=== PATIENT | female | born 1985 | race Two or more races ===

== ENCOUNTER 2016-12-29 07:47 | Inpatient (IN) | payer MEDICARE, MEDICAID ==
[~2016-12-29] VITALS: Ht 167.6 cm; Wt 98.9 kg
[~2016-12-29 07:47] MED LIST: IBUP200T64 PO; LORA-446 PO; TOPI200T25 PO
[2016-12-29] MEDS ORDERED: SODIUM CHLORIDE FLUSH 10ML SYR IVF ONE (08:00)
[2016-12-29] MEDS ORDERED: LORazepam 2 MG/ML, 1ML IVPush ONE (08:00)
[2016-12-29] MEDS ORDERED: LORazepam 2 MG/ML, 1ML ONE (08:09)
[2016-12-29 08:12] LABS: HEMATOCRIT 43.8 % (34.6-47.8); HEMOGLOBIN 14.3 g/dL (11.7-16.4); WHITE BLOOD COUNT 8.1 x10^3/uL (3.4-10)
[2016-12-29 08:23] LABS: ASPARTATE AMINO TRANSFERASE 32 U/L (15-37); BLOOD UREA NITROGEN 8 mg/dL (7-18)
[2016-12-29 08:33] LABS: ACETAMINOPHEN < 2 mcg/mL (10-30); IS PT STATUS REG ER OR PRE ER? YES
[2016-12-29] MEDS ORDERED: LACTULOSE 20 GM/30 ML UDC PO ONE (09:00)
[2016-12-29 09:48] LABS: DAU SCREEN DISCLAIMER; HCG UR LOT HCG7030192
[2016-12-29 09:56] LABS: HCG UR OBC PASS
[2016-12-29] MEDS ORDERED: LABETALOL 5MG/ML, 20ML IVPush PRN (11:00)
[2016-12-29] MEDS: LACTULOSE 10 GM/15 ML UDC PO SCH ×3 (11:00→20:43)
[2016-12-29] MEDS ORDERED: BISACODYL 10 MG SUPP PR PRN (11:00)
[2016-12-29] MEDS ORDERED: DOCUSATE 100 MG CAPSULE PO PRN (11:00)
[2016-12-29] MEDS ORDERED: ONDANSETRON 2MG/ML, 2ML IVPush PRN (11:00)
[2016-12-29] MEDS ORDERED: POLYETHYLENE GLYCOL 17 GM PACKET PO PRN (11:00)
[2016-12-29] MEDS ORDERED: GADOBUTROL 7.5 MMOL/7.5 ML PFS ONE (11:20)
[2016-12-29 11:52] LABS: VALPROIC ACID < 3.0 mcg/mL (50.0-100.0)
[2016-12-29 13:58] VITALS: BP 114/68
[2016-12-29] MEDS: ENOXAPARIN 40 MG/0.4 ML SQ SCH (16:04)
[2016-12-29] MEDS: D5%-0.45NACL+KCL 20MEQ 1,000 ML IV SCH (16:04)
[2016-12-29 20:10] VITALS: BP 112/79
[2016-12-29] MEDS: TOPIRAMATE 100 MG TABLET PO SCH (20:44)
[2016-12-30] MEDS: D5%-0.45NACL+KCL 20MEQ 1,000 ML IV SCH ×3 (01:53→22:04)
[2016-12-30 02:10] VITALS: BP 108/75
[2016-12-30 06:24] LABS: HEMATOCRIT 37.6 % (34.6-47.8); HEMOGLOBIN 12.3 g/dL (11.7-16.4); WHITE BLOOD COUNT 6.6 x10^3/uL (3.4-10)
[2016-12-30 06:57] LABS: ASPARTATE AMINO TRANSFERASE 26 U/L (15-37); BLOOD UREA NITROGEN 9 mg/dL (7-18)
[2016-12-30 07:38] VITALS: BP 122/80
[2016-12-30] MEDS: LACTULOSE 10 GM/15 ML UDC PO SCH ×3 (09:00→21:00)
[2016-12-30] MEDS: TOPIRAMATE 100 MG TABLET PO SCH ×2 (09:12→22:03)
[2016-12-30] MEDS: ENOXAPARIN 40 MG/0.4 ML SQ SCH (11:23)
[2016-12-30 14:15] VITALS: BP 104/71
[2016-12-30] MEDS ORDERED: GADOBUTROL 7.5 MMOL/7.5 ML PFS ONE (16:38)
[2016-12-30 19:57] VITALS: BP 106/72
[2016-12-31 01:47] VITALS: BP 107/66
[2016-12-31 06:40] LABS: HEMATOCRIT 38.4 % (34.6-47.8); HEMOGLOBIN 12.6 g/dL (11.7-16.4); WHITE BLOOD COUNT 6.3 x10^3/uL (3.4-10)
[2016-12-31 07:06] LABS: ASPARTATE AMINO TRANSFERASE 26 U/L (15-37); BLOOD UREA NITROGEN 7 mg/dL (7-18)
[2016-12-31 08:30] VITALS: BP 106/73
[2016-12-31] MEDS: D5%-0.45NACL+KCL 20MEQ 1,000 ML IV SCH (10:25)
[2016-12-31] MEDS: TOPIRAMATE 100 MG TABLET PO SCH ×2 (10:26→21:28)
[2016-12-31] MEDS: LACTULOSE 10 GM/15 ML UDC PO SCH (10:26)
[2016-12-31] MEDS: ENOXAPARIN 40 MG/0.4 ML SQ SCH (11:00)
[2016-12-31] MEDS ORDERED: MULT-658 PO (11:56)
[2016-12-31] MEDS ORDERED: TOPI200T25 PO (11:56)
[2016-12-31] MEDS ORDERED: THIA100T10 PO (11:56)
[2016-12-31] MEDS ORDERED: FOLI-17 PO (11:56)
[2016-12-31] MEDS ORDERED: FLU VACC QS2017-18 (36MOS+) UP/PF 0.5 ML IM-VACC ONE (14:00)
[2016-12-31] MEDS ORDERED: PNEUMOCOCCAL 23 VACCINE IM-VACC ONE (14:00)
[2016-12-31 14:30] VITALS: BP 102/65
[2016-12-31 19:34] VITALS: BP 102/67
[2017-01-01 03:40] VITALS: BP 95/67
[2017-01-01 05:47] LABS: BLOOD UREA NITROGEN 13 mg/dL (7-18)
[2017-01-01 08:30] VITALS: BP 101/66
[2017-01-01] MEDS: TOPIRAMATE 100 MG TABLET PO SCH (10:31)
[2017-01-01] MEDS: ACETAMINOPHEN 325 MG TABLET PO PRN ×2 (10:34→17:18)
[2017-01-01] MEDS: ENOXAPARIN 40 MG/0.4 ML SQ SCH (12:14)
[2017-01-01 14:30] VITALS: BP 104/62
[2017-01-01 19:59] VITALS: BP 98/67
[2017-01-01] MEDS: LEVETIRACETAM 500 MG TABLET PO SCH (20:48)
[2017-01-02 03:52] VITALS: BP 134/82
[2017-01-02 05:52] LABS: HEMATOCRIT 44.2 % (34.6-47.8); HEMOGLOBIN 14.5 g/dL (11.7-16.4); WHITE BLOOD COUNT 10.9 x10^3/uL (3.4-10)
[2017-01-02 06:00] LABS: BLOOD UREA NITROGEN 16 mg/dL (7-18)
[2017-01-02 08:30] VITALS: BP 101/70
[2017-01-02] MEDS: LEVETIRACETAM 500 MG TABLET PO SCH ×2 (09:51→20:16)
[2017-01-02] MEDS: ENOXAPARIN 40 MG/0.4 ML SQ SCH (11:00)
[2017-01-02 14:30] VITALS: BP 101/68
[2017-01-02] MEDS: ACETAMINOPHEN 325 MG TABLET PO PRN (20:16)
[2017-01-02 20:17] VITALS: BP 103/70
[2017-01-03 04:03] VITALS: BP 105/70
[2017-01-03 05:42] LABS: BLOOD UREA NITROGEN 15 mg/dL (7-18)
[2017-01-03 08:11] VITALS: BP 104/74
[2017-01-03] MEDS: ZINC SULFATE 220 MG CAPSULE PO SCH (10:08)
[2017-01-03] MEDS: ENOXAPARIN 40 MG/0.4 ML SQ SCH (10:08)
[2017-01-03] MEDS: LEVETIRACETAM 500 MG TABLET PO SCH ×2 (10:08→20:28)
[2017-01-03 14:00] VITALS: BP 103/70
[2017-01-03] MEDS: ACETAMINOPHEN 325 MG TABLET PO PRN (14:17)
[2017-01-03] MEDS ORDERED: POLYETHYLENE GLYCOL 17 GM PACKET PO PRN (19:30)
[2017-01-03] MEDS ORDERED: ONDANSETRON 2MG/ML, 2ML IVPush PRN (19:30)
[2017-01-03] MEDS ORDERED: LABETALOL 5MG/ML, 20ML IVPush PRN (19:30)
[2017-01-03] MEDS ORDERED: BISACODYL 10 MG SUPP PR PRN (19:30)
[2017-01-03] MEDS ORDERED: DOCUSATE 100 MG CAPSULE PO PRN (19:30)
[2017-01-03 21:25] VITALS: BP 98/67
[2017-01-04 03:07] VITALS: BP 98/64
[2017-01-04 07:34] VITALS: BP 99/66
[2017-01-04] MEDS: ACETAMINOPHEN 325 MG TABLET PO PRN ×2 (07:39→13:50)
[2017-01-04] MEDS: LEVETIRACETAM 500 MG TABLET PO SCH (07:39)
[2017-01-04] MEDS: ZINC SULFATE 220 MG CAPSULE PO SCH (07:39)
[2017-01-04] MEDS: ENOXAPARIN 40 MG/0.4 ML SQ SCH (09:32)
[2017-01-04] MEDS ORDERED: LIDOCAINE 1%, 20ML ONE (12:19)
[2017-01-04 12:23] LABS: HIV 1&2 ANTIBODY SCREEN Nonreactive (Nonreactive); HIV-1 p24 ANTIGEN Nonreactive (Nonreactive)
[2017-01-04] MEDS ORDERED: ZINC220C5 PO (13:38)
[2017-01-04] MEDS ORDERED: LEVE500T53 PO (13:38)
[2017-01-04 15:12] VITALS: BP 103/67
[2017-01-07 14:07] LABS: ALBUMIN CSF 15 mg/dL (11-48); ALBUMIN SERUM 3.8 g/dL (3.5-5.5); CSF IGG INDEX 0.5 (0.0-0.7); CSF/SERUM ALBUMIN INDEX 4 (0-8); IGG SERUM 1130 mg/dL (700-1600); IGG SYNTHESIS RATE CSF -3.8 mg/day (-9.9 TO +3.3); IGG/ALBUMIN RATIO CSF 0.14 (0.00-0.25); MYELIN BASIC PROTEIN CSF 0.8 ng/mL (0.0-1.2)
== END 2017-01-04 18:37 | disposition home or self-care (01) | DRG 100 ==
LOC: ED 10:01 → EDIP 10:02 → ED 10:13 → 3NW 12:09 → 3NE 17:49
PROVIDERS: ADMIT Internal Medicine; ATTEND Internal Medicine
PROC: 0T9B70Z Drainage of Bladder with Drainage Device, Via Natural or Artificial Opening (ICD-10-PCS; principal; 2016-12-29)
PROC: 009U3ZX Drainage of Spinal Canal, Percutaneous Approach, Diagnostic (ICD-10-PCS; 2017-01-04)
PROC: B01B1ZZ Fluoroscopy of Spinal Cord using Low Osmolar Contrast (ICD-10-PCS; 2017-01-04)
DX: G40.209 Localization-related (focal) (partial) symptomatic epilepsy and epileptic syndromes with complex partial seizures, not intractable, without status epilepticus (principal); G93.40 Encephalopathy, unspecified; E72.20 Disorder of urea cycle metabolism, unspecified; E87.2 Acidosis; K72.90 Hepatic failure, unspecified without coma; E60 Dietary zinc deficiency; F10.20 Alcohol dependence, uncomplicated; F15.90 Other stimulant use, unspecified, uncomplicated; Z59.0 Homelessness; Z91.19 Patient's noncompliance with other medical treatment and regimen
CPT/HCPCS: 36415; 62270; 70450; 70553; 71010; 72156; 72157; 80048; 80053; 80074; 80076; 80164; 80201; 80307; 80329; 81001; 81025; 82040; 82042; 82140; 82784; 83605; 83735; 83873; 84100; 84439; 84443; 84484; 84630; 85025; 85610; 85651; 86038; 86645; 86695; 86696; 86703; 86762; 86777; 86778; 87077; 87086; 87252; 87529; 87899; 90686; 90732; 93005; 95819; 96360; 96374; A9585; J1650; J3490; G0435; G0479; G0480; J2060; J3480

== ENCOUNTER 2017-03-16 07:26 | Emergency (ER) | payer MEDICARE, MEDICAID ==
[~2017-03-16] VITALS: Ht 167.6 cm; Wt 72.0 kg
[~2017-03-16 07:26] MED LIST changes: +FOLI-17 PO; +LEVE500T53 PO; +MULT-658 PO; +THIA100T10 PO; +ZINC220C5 PO
[2017-03-16] MEDS ORDERED: AZITHROMYCIN 500 MG TABLET PO ONE (08:00)
[2017-03-16] MEDS ORDERED: CEFTRIAXONE 250 MG IM ONE (08:00)
[2017-03-16] MEDS ORDERED: AZITHROMYCIN 250 MG TABLET ONE (08:10)
[2017-03-16] MEDS ORDERED: CEFTRIAXONE 250 MG ONE (08:10)
[2017-03-16 09:39] VITALS: BP 134/42
== END 2017-03-16 09:40 | disposition home or self-care (01) ==
LOC: ED 07:59
DX: A56.09 Other chlamydial infection of lower genitourinary tract (principal); N76.0 Acute vaginitis; B96.89 Other specified bacterial agents as the cause of diseases classified elsewhere; S62.347A Nondisplaced fracture of base of fifth metacarpal bone, left hand, initial encounter for closed fracture; G40.909 Epilepsy, unspecified, not intractable, without status epilepticus; X58.XXXA Exposure to other specified factors, initial encounter; Y93.89 Activity, other specified; Y92.89 Other specified places as the place of occurrence of the external cause; Y99.8 Other external cause status
CPT/HCPCS: 29125; 73130; 87210; 87491; 87591; 87808; 96372; 99285; J0696

== ENCOUNTER 2017-03-27 22:16 | Emergency (ER) | payer MEDICARE, MEDICAID ==
[~2017-03-27] VITALS: Ht 167.6 cm; Wt 71.7 kg
[2017-03-27] MEDS ORDERED: IBUPROFEN 200 MG TABLET ONE (23:15)
[2017-03-27] MEDS ORDERED: IBUPROFEN 200 MG TABLET PO ONE (23:30)
[2017-03-28 00:36] VITALS: BP 132/84
== END 2017-03-28 00:39 | disposition home or self-care (01) ==
LOC: ED 23:59
DX: F15.10 Other stimulant abuse, uncomplicated (principal); Z72.89 Other problems related to lifestyle; H92.01 Otalgia, right ear; R51 Headache; M25.532 Pain in left wrist; R07.9 Chest pain, unspecified; Z90.49 Acquired absence of other specified parts of digestive tract; F17.200 Nicotine dependence, unspecified, uncomplicated; Z98.51 Tubal ligation status; Z88.2 Allergy status to sulfonamides; Y04.8XXA Assault by other bodily force, initial encounter; Y93.89 Activity, other specified; Y92.009 Unspecified place in unspecified non-institutional (private) residence as the place of occurrence of the external cause; Y99.9 Unspecified external cause status
CPT/HCPCS: 71046; 99284

== ENCOUNTER 2017-04-14 15:02 | Emergency (ER) | payer MEDICARE, MEDICAID ==
[~2017-04-14] VITALS: Ht 167.6 cm; Wt 68.1 kg
[2017-04-14 16:22] VITALS: BP 114/77
== END 2017-04-14 16:25 | disposition home or self-care (01) ==
LOC: EDBD → MERGE 16:19 → ED 16:19
DX: G40.909 Epilepsy, unspecified, not intractable, without status epilepticus (principal); Z59.0 Homelessness
CPT/HCPCS: 99283

== ENCOUNTER 2019-06-30 12:59 | Emergency (ER) | payer MEDICARE, MEDICAID ==
[~2019-06-30] VITALS: Ht 167.6 cm; Wt 83.6 kg
[~2019-06-30 12:59] MED LIST changes: -ZINC220C5 PO; +ZINC220C7 PO
[2019-06-30] MEDS ORDERED: SODIUM CHLORIDE 0.9% 1,000ML IVBOLUS ONE (13:30)
--- NOTE | 2019-06-30 13:30 | NUR ---
THIS IS A 34 YO F W/ C/O SOB, DIZZINESS AND COUGH SINCE YESTERDAY. PT REPORTS SYMPTOMS ARE WORSE AT NIGHT. DENIES ABD PAIN/CP. RESP EVEN AND UNLABORED. NADN. PT CONVERSING IN FULL SENTENCES W/O DIFFICULTY. PT IS TACHYCARDIC, OTHER VS WDL. PIV STARTED AND LABS DRAWN. PT IS RESTING ON [employer] W/ CALL LIGHT IN REACH. DENIES FURTHER NEEDS AT THIS TIME.
--- NOTE | 2019-06-30 13:31 | NUR ---
RAD IN ROOM.
[2019-06-30 13:37] LABS: BASOPHILS # (AUTO) 0.04 x10^3/uL (0-0.1); BASOPHILS % (AUTO) 0 % (0-1); EOSINOPHILS # (AUTO) 0.47 x10^3/uL (0-0.4); EOSINOPHILS % (AUTO) 5 % (1-7); LYMPHOCYTES # (AUTO) 1.43 x10^3/uL (1-3.4); LYMPHOCYTES % (AUTO) 15 % (22-44); MD NO; MEAN CORPUSCULAR HGB CONC 32.7 g/dL (32.4-35.8); MEAN CORPUSCULAR VOLUME 88.8 fL (80-100); MEAN PLATELET VOLUME 6.7 fL (7.4-10.4); MONOCYTES # (AUTO) 0.65 x10^3/uL (0.2-0.8); MONOCYTES % (AUTO) 7 % (2-9); NEUTROPHILS # (AUTO) 7.05 x10^3/uL (1.8-6.8); NEUTROPHILS % (AUTO) 73 % (42-75); PLATELET COUNT 304 x10^3/uL (130-400); RED CELL DISTRIBUTION WIDTH 14.3 % (9.6-15.2)
[2019-06-30 13:48] LABS: ALBUMIN 3.4 g/dL (3.4-5.0); ANION GAP 7 mmol/L (5-15); CALCIUM 9.1 mg/dL (8.5-10.1); CHLORIDE 107 mmol/L (98-107); CREATININE 0.73 mg/dL (0.55-1.02)
--- NOTE | 2019-06-30 13:54 | NUR ---
ALL TESTS RESULTED. PT IS UP FOR RECHECK AT THIS TIME.
[2019-06-30 13:58] VITALS: BP 121/84
--- NOTE | 2019-06-30 14:18 | NUR ---
Patient given discharge instructions and they have confirmed that they understand the instructions. Patient ambulatory with steady gait.
== END 2019-06-30 14:20 | disposition home or self-care (01) ==
LOC: ED 13:37
DX: J18.0 Bronchopneumonia, unspecified organism (principal); R00.0 Tachycardia, unspecified; R11.0 Nausea
CPT/HCPCS: 36415; 71045; 80048; 82040; 84703; 85025; 85379; 93005; 99285; J7030

== ENCOUNTER 2020-04-17 01:59 | Emergency (ER) | payer MEDICARE ==
[~2020-04-17] VITALS: Ht 167.6 cm; Wt 77.7 kg
[2020-04-17 02:48] LABS: CLUE CELLS PRESENT (NONE SEEN)
[2020-04-17 02:49] LABS: WET PREP WBCS FEW (FEW)
[2020-04-17] MEDS ORDERED: FLUCONAZOLE 100 MG TABLET PO ONE (03:00)
[2020-04-17] MEDS ORDERED: FLUCONAZOLE 100 MG TABLET ONE (03:30)
[2020-04-17] MEDS ORDERED: metroNIDAZOLE 500 MG TABLET PO ONE (03:30)
--- NOTE | 2020-04-17 03:30 | NUR ---
patient resting in bed. in NAD. using cell phone. call noble in reach
[2020-04-17] MEDS ORDERED: metroNIDAZOLE 500 MG TABLET ONE (03:46)
--- NOTE | 2020-04-17 04:15 | NUR ---
discharge instructions reviewed with patient. no further questions. prescription handed directly to patient. all personal belongings with patient on dc. no IV was placed. steady gait with ambulation to lobby
[2020-04-17 04:27] VITALS: BP 129/95
== END 2020-04-17 04:29 | disposition home or self-care (01) ==
LOC: ED 02:29
DX: N76.0 Acute vaginitis (principal)
CPT/HCPCS: 87210; 87491; 87591; 87808; 99283

== ENCOUNTER 2020-04-21 22:53 | Emergency (ER) | payer SELFPAY ==
[~2020-04-21] VITALS: Ht 167.6 cm; Wt 75.0 kg
[~2020-04-21 22:53] MED LIST changes: -FOLI-17 PO; +FOLI1TAB32 PO
[2020-04-21] MEDS ORDERED: ALBUTEROL/IPRATROPIUM 2.5MG/0.5MG, 3 ML NPPB ONE (23:00)
[2020-04-21] MEDS ORDERED: ALBUTEROL/IPRATROPIUM 2.5MG/0.5MG, 3 ML ONE (23:03)
--- NOTE | 2020-04-21 23:13 | NUR ---
BIBA FOR [facility]. PT STATES THE COLD WEATHER BRINGS ON ATTACKS FOR HER AND SHE DID NOT HAVE HER INHLAER SO SHE CALELD 911. ARJUN GAVE 1 DUONEB AND 1 ALBUTEROL TX EN ROUTE.
[2020-04-21 23:40] VITALS: BP 122/83
== END 2020-04-21 23:42 | disposition home or self-care (01) ==
LOC: ED 23:00
DX: J45.41 Moderate persistent asthma with (acute) exacerbation (principal); F17.210 Nicotine dependence, cigarettes, uncomplicated; Z90.49 Acquired absence of other specified parts of digestive tract; Z98.51 Tubal ligation status
CPT/HCPCS: 94640; 99283; 99406; J7512

== ENCOUNTER 2020-08-03 17:36 | Emergency (ER) | payer SELFPAY ==
--- NOTE | 2020-08-03 17:50 | NUR ---
PT BIB [facility]-PT HAD 3 SZ TODAY, 3RD SZ PT WAS SLOW TO COME BACK. 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 PT A&OX4, PT LAST SZ WAS 2 WEEK AGO, HAS NOT BEEN TAKING TOPAMAX. PT REPORTS LAST USE OF METH AND ETOH WAS YESTERDAY. CURRENTLY BEDSIDE.
[2020-08-03] MEDS ORDERED: LORazepam 0.5MG TABLET ONE (17:59)
[2020-08-03] MEDS ORDERED: LORazepam 0.5MG TABLET PO ONE (18:00)
[2020-08-03] MEDS ORDERED: TOPIRAMATE 100 MG TABLET PO ONE (18:00)
--- NOTE | 2020-08-03 18:03 | NUR ---
PT MEDICATED, SEE MAY. MED REQUEST SENT TO PHARMACY FOR TOPIRMATE. PT HTN, OAND TACHYCARDIC. NADN. CALL LIGHT WITHIN REACH.
[2020-08-03 18:22] LABS: BASOPHILS % (AUTO) 1 % (0-1); EOSINOPHILS % (AUTO) 7 % (1-7); LYMPHOCYTES % (AUTO) 29 % (22-44); MEAN CORPUSCULAR HEMOGLOBIN 29.8 pg (27.0-34.8); MEAN CORPUSCULAR HGB CONC 33.2 g/dL (32.4-35.8); MEAN PLATELET VOLUME 6.6 fL (7.4-10.4); MONOCYTES % (AUTO) 10 % (2-9); NEUTROPHILS % (AUTO) 53 % (42-75); PLATELET COUNT 339 x10^3/uL (130-400); RED BLOOD COUNT 4.67 x10^6/uL (3.82-5.3); RED CELL DISTRIBUTION WIDTH 13.4 % (9.6-15.2)
[2020-08-03 18:23] LABS: ALBUMIN 3.6 g/dL (3.4-5.0); ANION GAP 9 mmol/L (5-15); CHLORIDE 108 mmol/L (98-107); CREATININE 0.91 mg/dL (0.55-1.02)
[2020-08-03 18:24] LABS: MD NO
--- NOTE | 2020-08-03 19:00 | NUR ---
RONNIEAR REPORT GIVEN TO JAMA. Addendum: 08/03/20 at 1901 by BLADE PT A&OX4, NADN. REG/UNLABORED RESP. BEDRAIL UPX2, CALL LIGHT WITHIN REACH.
[2020-08-03] MEDS ORDERED: ACETAMINOPHEN 325 MG TABLET ONE (19:24)
[2020-08-03] MEDS ORDERED: ACETAMINOPHEN 325 MG TABLET PO ONE (19:30)
[2020-08-03 19:58] VITALS: BP 131/77
== END 2020-08-03 20:00 | disposition home or self-care (01) ==
LOC: ED 19:15
DX: G40.409 Other generalized epilepsy and epileptic syndromes, not intractable, without status epilepticus (principal); R00.0 Tachycardia, unspecified; J45.909 Unspecified asthma, uncomplicated; Z90.49 Acquired absence of other specified parts of digestive tract; F17.200 Nicotine dependence, unspecified, uncomplicated
CPT/HCPCS: 36415; 80048; 82040; 84703; 85025; 93005; 99284

== ENCOUNTER 2020-09-02 02:44 | Inpatient (IN) | payer OTHER ==
[~2020-09-02] VITALS: Ht 167.6 cm; Wt 75.0 kg
--- NOTE | 2020-09-02 03:22 | NUR ---
PT C/O OF RLQ PAIN SINCE 2 DAYS AGO. PT COMPLAINS OF MALAISE THROUGHOUT BODY, NAUSEA, AND DIARRHEA REPORTS HAVING A HEADACHE, STATES TAKING 4 TABS OF TYLENOL. STATES HOT AND COLD FLASHES ATTACHED TO CARD/SP092/BP MONITORS. VSS WITH ELEVATED HR. BED IN LOW NPOSITION, RAILS ENGAGED, CALL LIGHT WITHIN REACH. FRIEND AT BEDSIDE. [facility]
[2020-09-02] MEDS ORDERED: SODIUM CHLORIDE FLUSH 10ML SYR IVF ONE (03:30)
[2020-09-02] MEDS ORDERED: SODIUM CHLORIDE 0.9% 1,000ML IVBOLUS ONE (03:30)
[2020-09-02] MEDS ORDERED: MORPHINE SULFATE 4 MG/ML, 1ML IVPush PRN (03:30)
[2020-09-02] MEDS ORDERED: ONDANSETRON 2MG/ML, 2ML IVPush ONE (03:30)
[2020-09-02 03:32] LABS: MICROSCOPIC AUTO
[2020-09-02 03:55] LABS: BASOPHILS % (AUTO) 1 % (0-1); EOSINOPHILS % (AUTO) 1 % (1-7); LYMPHOCYTES % (AUTO) 7 % (22-44); MEAN CORPUSCULAR HEMOGLOBIN 30.4 pg (27.0-34.8); MEAN CORPUSCULAR HGB CONC 33.8 g/dL (32.4-35.8); MEAN PLATELET VOLUME 6.8 fL (7.4-10.4); MONOCYTES % (AUTO) 6 % (2-9); NEUTROPHILS % (AUTO) 86 % (42-75); PLATELET COUNT 240 x10^3/uL (130-400); RED BLOOD COUNT 4.42 x10^6/uL (3.82-5.3); RED CELL DISTRIBUTION WIDTH 13.9 % (9.6-15.2)
[2020-09-02 04:03] LABS: ALANINE AMINOTRANSFERASE 35 U/L (12-78); ANION GAP 10 mmol/L (5-15); CALCIUM 8.7 mg/dL (8.5-10.1); CHLORIDE 105 mmol/L (98-107); CREATININE 0.61 mg/dL (0.55-1.02)
[2020-09-02 04:08] LABS: ALKALINE PHOSPHATASE 115 U/L (45-117); BILIRUBIN,TOTAL 0.5 mg/dL (0.2-1.0); TOTAL PROTEIN 7.4 g/dL (6.4-8.2)
--- NOTE | 2020-09-02 04:38 | NUR ---
Task RN: multiple IV attempts with no success. Patient to be given oral meds and CT without contrast. Primary RN notified.
[2020-09-02] MEDS ORDERED: HYDROcodone/APAP 5/325 TABLET ONE (04:39)
[2020-09-02] MEDS ORDERED: ONDANSETRON ODT 4 MG ONE (04:39)
[2020-09-02] MEDS ORDERED: KETOROLAC 30 MG/1 ML ONE (04:39)
--- NOTE | 2020-09-02 04:45 | NUR ---
PT OFF UNIT IN IMAGING.
[2020-09-02] MEDS ORDERED: ONDANSETRON ODT 4 MG PO ONE (05:00)
[2020-09-02] MEDS ORDERED: KETOROLAC 60 MG/2 ML IM ONE (05:00)
[2020-09-02] MEDS ORDERED: HYDROcodone/APAP 5/325 TABLET PO ONE (05:00)
[2020-09-02] MEDS ORDERED: KETOROLAC 60 MG/2 ML ONE (05:11)
[2020-09-02] MEDS ORDERED: MORPHINE SULFATE 4 MG/ML, 1ML ONE (05:11)
[2020-09-02] MEDS ORDERED: ONDANSETRON 2MG/ML, 2ML ONE (05:11)
[2020-09-02] MEDS ORDERED: CEFTRIAXONE 1,000 MG in DEXTROSE 5% 50 ML IVPB ONE (05:30)
[2020-09-02] MEDS ORDERED: ACETYLCYSTEINE 11,250 MG in DEXTROSE 5% 200 ML IV ONE (05:30)
--- NOTE | 2020-09-02 05:30 | NUR ---
PERFORMED EJ IV. MD RECOMMENDED TO INSTILL ROCEPHIN FIRST. ATTACHED TO MONITORS. VSS. BF AT BEDSIDE Patient is resting comfortably in bed. Bed in lowest, rails engaged, call light on lap. Vital Signs within normal limits. WCTM.
--- NOTE | 2020-09-02 06:15 | NUR ---
Task RN: medicated patient per mar.
[2020-09-02] MEDS ORDERED: ACETYLCYSTEINE IV ONE ×2 (06:30→09:30)
[2020-09-02] MEDS ORDERED: DEXTROSE 5% IV ONE ×2 (06:30→09:30)
--- NOTE | 2020-09-02 06:59 | NUR ---
GAVE REPORT TO NORBERTO NICOLE. TRANSFER OF CARE
[2020-09-02] MEDS ORDERED: IBUPROFEN 600 MG TABLET PO PRN (07:00)
[2020-09-02] MEDS ORDERED: ONDANSETRON 2MG/ML, 2ML IVPush PRN (07:00)
[2020-09-02] MEDS ORDERED: ONDANSETRON ODT 4 MG PO PRN (07:00)
[2020-09-02] MEDS ORDERED: KETOROLAC 30 MG/1 ML IM PRN (07:00)
[2020-09-02] MEDS ORDERED: SODIUM CHLORIDE 0.9% 1,000 ML IV SCH (07:00)
--- NOTE | 2020-09-02 07:26 | NUR ---
REPORT TO MAGGIE NICOLE FOR ROOM 489.
[2020-09-02 07:43] VITALS: BP 128/88
[2020-09-02] MEDS ORDERED: TOPIRAMATE 100 MG TABLET PO SCH (09:00)
[2020-09-02] MEDS ORDERED: LORazepam 0.5MG TABLET PO PRN (09:30)
[2020-09-02] MEDS ORDERED: LORazepam 1MG TABLET PO PRN ×2 (09:30)
[2020-09-03] MEDS ORDERED: CEFTRIAXONE 2 GM in DEXTROSE 5% 50 ML IVPB SCH (09:30)
== END 2020-09-02 10:39 | disposition left against medical advice (07) | DRG 918 ==
LOC: ED 06:45 → EDIP 06:55 → 4EST 07:39
PROVIDERS: ADMIT Internal Medicine; ATTEND Internal Medicine
DX: T39.1X1A Poisoning by 4-Aminophenol derivatives, accidental (unintentional), initial encounter (principal); N12 Tubulo-interstitial nephritis, not specified as acute or chronic; E87.1 Hypo-osmolality and hyponatremia; F15.90 Other stimulant use, unspecified, uncomplicated; F17.200 Nicotine dependence, unspecified, uncomplicated; G40.909 Epilepsy, unspecified, not intractable, without status epilepticus; J45.909 Unspecified asthma, uncomplicated; Z53.29 Procedure and treatment not carried out because of patient's decision for other reasons; E87.6 Hypokalemia; R79.89 Other specified abnormal findings of blood chemistry; F19.10 Other psychoactive substance abuse, uncomplicated; Z71.51 Drug abuse counseling and surveillance of drug abuser; F10.10 Alcohol abuse, uncomplicated; Z71.6 Tobacco abuse counseling; Y92.89 Other specified places as the place of occurrence of the external cause; Z81.1 Family history of alcohol abuse and dependence; Z98.51 Tubal ligation status; Z88.2 Allergy status to sulfonamides; Y90.0 Blood alcohol level of less than 20 mg/100 ml
CPT/HCPCS: 36415; 74176; 80053; 80299; 80320; 81001; 83605; 83690; 84703; 85025; 87077; 87086; 87186; 93005; 96372; 96374; 96375; G0378; J0132; J0696; J1885; J2405; J7060; G0480; J2270; J7030

== ENCOUNTER 2020-09-02 10:42 | Emergency (ER) | payer SELFPAY ==
[~2020-09-02] VITALS: Ht 167.6 cm; Wt 75.6 kg
--- NOTE | 2020-09-02 11:27 | NUR ---
Note hareshchris in EDM - 09/02/20 at 1129 by JT pt left from floor AMA, states they "made a mistake" and wants to receive treatment. pt took 3-4 tylenol every 3-4 hours for 48 hours. pt states abd pain throughout. pt a&o, resps even and unlabored, man galeana.
--- NOTE | 2020-09-02 11:29 | NUR ---
pt left from floor AMA, states they "made a mistake" and wants to receive treatment. pt took 3-4 tylenol every 3-4 hours for 48 hours. pt states abd pain throughout. pt a&o, resps even and unlabored, vss, nadn.
[2020-09-02 12:53] LABS: BASOPHILS % (AUTO) 1 % (0-1); EOSINOPHILS % (AUTO) 1 % (1-7); LYMPHOCYTES % (AUTO) 15 % (22-44); MEAN CORPUSCULAR HEMOGLOBIN 29.9 pg (27.0-34.8); MONOCYTES % (AUTO) 10 % (2-9); NEUTROPHILS % (AUTO) 74 % (42-75); PLATELET COUNT 248 x10^3/uL (130-400); RED BLOOD COUNT 4.35 x10^6/uL (3.82-5.3); RED CELL DISTRIBUTION WIDTH 13.9 % (9.6-15.2)
--- NOTE | 2020-09-02 12:57 | NUR ---
pt resting in bed, a&o, resps even and unlabored, vss, nadn, call light in reach, friend at bedside. awaiting lab results and dispo.
[2020-09-02 13:05] LABS: ALBUMIN 2.6 g/dL (3.4-5.0); ANION GAP 7 mmol/L (5-15); CALCIUM 8.3 mg/dL (8.5-10.1); CHLORIDE 106 mmol/L (98-107)
[2020-09-02 13:10] LABS: ALANINE AMINOTRANSFERASE 36 U/L (12-78); ALKALINE PHOSPHATASE 105 U/L (45-117); BILIRUBIN,TOTAL 0.4 mg/dL (0.2-1.0); CREATININE 0.52 mg/dL (0.55-1.02); TOTAL PROTEIN 6.5 g/dL (6.4-8.2)
[2020-09-02 14:14] VITALS: BP 113/71
--- NOTE | 2020-09-02 14:15 | NUR ---
task rn: Patient/Caregiver given discharge instructions and they have confirmed that they understand the instructions. Patient ambulatory with steady gait. NAD, all questions answered appropriately, denies additional needs at this time. No personal belongings left in room after discharge.
== END 2020-09-02 14:16 | disposition home or self-care (01) ==
LOC: ED 11:40
DX: N39.0 Urinary tract infection, site not specified (principal); R10.11 Right upper quadrant pain; J45.909 Unspecified asthma, uncomplicated; G40.909 Epilepsy, unspecified, not intractable, without status epilepticus; Z90.49 Acquired absence of other specified parts of digestive tract
CPT/HCPCS: 36415; 80053; 80299; 85025; 99283

== ENCOUNTER 2020-09-07 16:19 | Emergency (ER) | payer OTHER ==
[~2020-09-07] VITALS: Ht 167.6 cm; Wt 74.0 kg
--- NOTE | 2020-09-07 16:22 | NUR ---
PT WITH PMH OF SZ DISORDER AND ALCOHOLISM WAS BELIEVED BY SIGNIFICANT OTHER TO HAVE 2 WITNESSED SEIZURES TODAY [place]. PT FOUND BY EMS POST ICTAL WITH [facility] 11. PT AAO X 4 UPON ARRIVAL TO [facility] ED. PT NON COMPLIANT WITH SZ DISORDER MEDICATIONS. EMS REPORTS PT USED METHAMPHETAMINE TODAY. PT DENIES ETOH USE TODAY. UPON ARRIVAL TO [facility] ED, PT PLACED ON CARDIAC AND VS MONITORS. PT VSS. SEIZURE PADS PLACED ON GURNEY WITH PROPER SZ PRECAUTIONS IN PLACE. PT EDUCATED ON ER PROCESS AND POC AND VERBALIZES UNDERSTANDING. AWAITING ORDER FROM MD AT THIS TIME.
[2020-09-07 17:42] VITALS: BP 122/78
--- NOTE | 2020-09-07 17:42 | NUR ---
PT ASLEEP IN [facility] AT THIS TIME. VSS.
[2020-09-07 17:49] LABS: BASOPHILS % (AUTO) 1 % (0-1); EOSINOPHILS % (AUTO) 3 % (1-7); LYMPHOCYTES % (AUTO) 26 % (22-44); MEAN CORPUSCULAR HEMOGLOBIN 29.6 pg (27.0-34.8); MEAN CORPUSCULAR HGB CONC 32.7 g/dL (32.4-35.8); MEAN PLATELET VOLUME 6.4 fL (7.4-10.4); MONOCYTES % (AUTO) 10 % (2-9); NEUTROPHILS % (AUTO) 61 % (42-75); PLATELET COUNT 470 x10^3/uL (130-400); RED BLOOD COUNT 4.35 x10^6/uL (3.82-5.3); RED CELL DISTRIBUTION WIDTH 13.9 % (9.6-15.2)
[2020-09-07 17:52] LABS: ALANINE AMINOTRANSFERASE 25 U/L (12-78); ANION GAP 6 mmol/L (5-15); CALCIUM 8.7 mg/dL (8.5-10.1); CHLORIDE 110 mmol/L (98-107); CREATININE 0.72 mg/dL (0.55-1.02)
[2020-09-07 17:56] LABS: ALKALINE PHOSPHATASE 93 U/L (45-117); BILIRUBIN,TOTAL 0.3 mg/dL (0.2-1.0)
--- NOTE | 2020-09-07 18:46 | NUR ---
PT D/C WITH D/C SUMMARY AND SCRIPT. PT QUESTIONS ANSWERED. PT EDUCATED ON NEED FOR USE OF ANTICONVULSANT MEDICATIONS AND VERBALIZES UNDERSTANDING. PT DENIES ANY OTHER NEEDS PERTAINING TO THIS VISIT AND AMBULATES TO REGISTRATION DESK WITH STEADY GAIT FOR D/C HOME WITH FRIEND. PT PROVIDED A BUS PASS PER PT REQUEST.
== END 2020-09-07 18:51 | disposition home or self-care (01) ==
LOC: ED 17:25
DX: G40.319 Generalized idiopathic epilepsy and epileptic syndromes, intractable, without status epilepticus (principal); F10.10 Alcohol abuse, uncomplicated; F15.10 Other stimulant abuse, uncomplicated; F17.200 Nicotine dependence, unspecified, uncomplicated; J45.909 Unspecified asthma, uncomplicated; Z90.49 Acquired absence of other specified parts of digestive tract; Y90.0 Blood alcohol level of less than 20 mg/100 ml
CPT/HCPCS: 36415; 80053; 80320; 84703; 85025; 93005; 99284; G0480